=== PATIENT | male | born 1975 | race Caucasian/White ===

== ENCOUNTER 2016-04-25 08:46 | Emergency (ER) | payer OTHER ==
--- NOTE | 2016-04-25 09:03 | CPEKG ---
Heart Rate: 96 RR Interval: 625 P-R Interval: 156 QRSD Interval: 92 QT Interval: 348 QTC Interval: 440 P [place]: 41 QRS [place]: 67 T Wave [place]: 13 EKG Severity - NORMAL ECG - EKG Impression: SINUS RHYTHM Electronically Signed By: Tam Patterson 25-Apr-2016 15:00:51
[2016-04-25] MEDS ORDERED: NS 1,000 ML IV ONE (09:08)
--- NOTE | 2016-04-25 09:12 | EDPHY ---
H & P Stated Complaint: CP since yest. Time Seen by Provider: 04/25/16 09:03 - Personal History Current Tetanus/Diphtheria Vaccine: Yes Current Tetanus Diphtheria and Acellular Pertussis (TDAP): Yes Tetanus Vaccine Date: 2012 - Medical/Surgical History Hx Asthma: Yes Hx Chronic Respiratory Disease: No Hx Diabetes: No Hx Cardiac Disease: No Hx Renal Disease: No Hx Cirrhosis: No Hx Alcoholism: No Hx HIV/AIDS: No Hx Splenectomy or Spleen Trauma: No Other PMH: pneumothorax, asthma, left ACL repair, left foot surgery - Social History Smoking Status: Current some day smoker Constitutional: Initial Vital Signs Temperature (C) 36.5 C 04/25/16 08:49 Heart Rate 110 H 04/25/16 08:49 Respiratory Rate 16 04/25/16 08:49 Blood Pressure 174/120 H 04/25/16 08:49 O2 Sat (%) 95 04/25/16 08:49 O2 Delivery Mode Nasal Cannula O2 (L/minute) 2 Allergies/Adverse Reactions: No Known Allergies Allergy (Unverified 10/11/14 14:05) Home Medications: Medication Instructions Recorded Docusate Sodium [Colace 100 MG (*)] 100 mg PO BID #20 cap 10/13/14 Lisinopril [Zestril 10 mg (*)] 10 mg PO DAILY #30 tab 10/13/14 oxyCODONE IR [Oxycodone Ir (*)] 5 - 10 mg PO Q3 PRN #20 tab 10/13/14 HYDROcodone/APAP 10/325 [[place] 1 - 2 each PO Q4-6PRN PRN #20 tab 04/25/16 10/325] Lisinopril 10 mg PO DAILY #0 tablet 04/25/16 Medical Decision Making ED Course/Re-evaluation: CHIEF COMPLAINT: Chest pain. 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 The pain went away after a few minutes. It has been intermittent since then. The pain does not radiate. It is not worsened with deep breathing. He denies dizziness, nausea, palpitations. He has also had right-sided tooth pain and left ear pain for 4 or 5 months. He has taken Ibuprofen for the pain which has helped a small amount. REVIEW OF SYSTEMS: A 10 point review of systems was performed and is negative with the exception of the elements mentioned in the history of present illness. PHYSICAL EXAM: HR, BP, O2 Sat, RR. Temp noted General Appearance: Alert, well hydrated, appropriate, and non-toxic appearing. Head: Atraumatic without scalp tenderness or obvious injury Eyes: Pupils equal, round, reactive to light and accommodation, EOMI, no trauma , no injection. Ears: Clear bilaterally, no perforation, normal landmarks Nose: Atraumatic, no rhinorrhea, clear. Throat: There is no erythema or exudates, no lesions, normal tonsils, mucus membranes moist. Neck: Supple, 2+ carotid upstroke, nontender, no lymphadenopathy. Respiratory: No retractions, no distress, no wheezes, and no accessory muscle use. Lungs are clear to auscultation bilaterally. Cardiovascular: Diminished heart sounds. Regular rate and rhythm, no murmurs, rubs, or gallops. Bilateral carotid, radial, dorsalis pedis, and posterior tibial pulses intact. Good capillary refill all extremities. Gastrointestinal: Abdomen is soft, nontender, non-distended, no masses, no rebound, no guarding, no peritoneal signs. Musculoskeletal: Normal active ROM of all extremities, atraumatic. Neurological: Alert, appropriate, and interactive. The patient has normal DTRs and non-focal cranial nerves, motor, sensory, and cerebellar exam. Skin: No rashes, good turgor, no nodules on palpation. Past medical history:Pneumothorax, asthma. Past surgical history:ACL repair. Family history:Both parents had hypertension. Social history:Works in a warehouse, smokes 3 cigarettes per week, social alcohol use. DIAGNOSTICS/PROCEDURES/CRITICAL CARE TIME: Study: PA and Lateral Chest X-ray Indication: Chest pain Results: I viewed the images myself on the PACS system. The radiologist interpretation is: no acute process. Study: CT of the chest. Indication: Pain. Results: No acute process. The study was read by the radiologist. I viewed the images myself on the PACS system. DIFFERENTIAL DIAGNOSIS: The differential diagnosis for the patient's chest pain included but was not limited to pneumothorax, myocardial ischemia, pulmonary embolus, chest wall pain , pleural inflammation, and pulmonary infectious causes. MEDICAL DECISION MAKIN-year-old male presents with dull intermittent mild chest pain since yesterday. He has a history of spontaneous pneumothorax a year ago that began in a similar fashion, when he was lifting items in a warehouse. His last pneumothorax involved a hospital stay of 3 days. Today the chest pain does not radiate and has no associated symptoms. His blood pressure is high in the ER today (198/128), however it was high last time as well. He had close follow up after that visit that revealed no problems, so I am not overly concerned with this today. An IV was established and labs ordered. Chest x-ray, EKG ordered. He is tachycardic at 110. 0946: I spoke with Dr. Vallejo, radiology. He reports the x-ray as negative, specifically no pneumothorax or pneumomediastinum. I discussed this with the patient at this time. He tells me he is still having mild chest pain. The pain is not reproducible on palpation. He believes his last pneumothorax was diagnosed with x-ray. We will await the rest of his lab work to see if CT is indicated. Troponin is negative, d-dimer, BNP negative. I reviewed the patient's past medical notes. He had a chest CT 09/2014 to diagnose his pneumothorax. He has good kidney function today. Chest CT ordered. 1110: Reassessed patient. He is ready to go home. I answered his questions. He was given return precautions prior to leaving. - Data Points Laboratory Results: Laboratory Results 04/25/16 09:00 04/25/16 09:00 04/25/16 09:00 WBC 7.90 10^3/uL (3.80-9.50) RBC 5.15 10^6/uL (4.40-6.38) Hgb 15.4 g/dL (13.7-17.5) Hct 43.5 % (40.0-51.0) MCV 84.5 fL (81.5-99.8) MCH 29.9 pg (27.9-34.1) MCHC 35.4 g/dL (32.4-36.7) RDW 11.9 % (11.5-15.2) Plt Count 269 10^3/uL (150-400) MPV 9.8 fL (8.7-11.7) Neut % (Auto) 67.8 % (39.3-74.2) Lymph % (Auto) 21.0 % (15.0-45.0) [place] % (Auto) 7.2 % (4.5-13.0) Eos % (Auto) 2.3 % (0.6-7.6) Baso % (Auto) 1.1 % (0.3-1.7) Nucleat RBC Rel Count 0.0 % (0.0-0.2) Absolute Neuts (auto) 5.35 10^3/uL (1.70-6.50) Absolute Lymphs (auto) 1.66 10^3/uL (1.00-3.00) Absolute Monos (auto) 0.57 10^3/uL (0.30-0.80) Absolute Eos (auto) 0.18 10^3/uL (0.03-0.40) Absolute Basos (auto) 0.09 10^3/uL (0.02-0.10) Absolute Nucleated RBC 0.00 10^3/uL (0-0.01) Immature Gran % 0.6 % (0.0-1.1) Immature Gran # 0.05 10^3/uL (0.00-0.10) PT 12.5 SEC (12.0-15.0) INR 0.94 (0.83-1.16) APTT 21.5 L SEC (23.0-38.0) D-Dimer < 0.27 ug/mLFEU (0.00-0.50) Sodium 141 mEq/L (134-144) Potassium 4.1 mEq/L (3.5-5.2) Chloride 105 mEq/L (97-110) Carbon Dioxide 22 mEq/l (22-31) Anion Gap 14 mEq/L (8-16) BUN 11 mg/dL (7-23) Creatinine 0.8 mg/dL (0.7-1.3) Estimated GFR > 60 Glucose 110 H mg/dL (70-100) Calcium 9.9 mg/dL (8.5-10.4) Troponin I < 0.012 ng/mL (0-0.034) NT-Pro-B Natriuret Pep 39 pg/mL (0-125) Medications Given: Discontinued Medications Aspirin (Aspirin) 324 mg PO EDNOW ONE Stop: 04/25/16 09:32 Last Admin: 04/25/16 09:46 Dose: 324 mg Sodium Chloride (Ns) 1,000 mls @ 0 mls/hr IV ONCE ONE PRN Reason: Wide Open Stop: 04/25/16 09:09 Last Admin: 04/25/16 09:11 Dose: 1,000 mls Departure - Departure Disposition: Home, Routine, Self-Care Clinical Impression: Atypical chest pain Condition: Good Instructions: Chest Pain (ED) Additional Instructions: Call Dr. Coronado, cardiology, today to set up a follow up appointment for reevaluation and for evaluation of your high blood pressure. Return to the emergency department for any serious worsening of condition. Referrals: Harrison Blair MD [Primary Care Provider] - As per Instructions Tatyana Coronado MD [Medical Doctor] - As per Instructions Prescriptions: Lisinopril 10 mg PO DAILY #0 tablet HYDROcodone/APAP 10/325 [[place] 10/325] 1 - 2 each PO Q4-6PRN PRN #20 tab PRN Reason: Pain, Moderate Report Scribed for: Tam Patterson Report Scribed by: Victorino Medrano Date of Report: 04/25/16 Time of Report: 09:27
[2016-04-25 09:29] LABS: % IMMATURE GRANULYOCYTES 0.6 % (0.0-1.1); ABSOLUTE IMMATURE GRANULOCYTES 0.05 10^3/uL (0.00-0.10); ADD DIFF? NO; ADD MORPH? NO; ADD SCAN? NO; ATYPICAL LYMPHOCYTE FLAG 0 (0-99); FRAGMENT RBC FLAG 0 (0-99); HEMATOCRIT 43.5 % (40.0-51.0); HEMOGLOBIN 15.4 g/dL (13.7-17.5); LEFT SHIFT FLG 0 (0-99); LIPEMIA HEMOLYSIS FLAG 90 (0-99); MEAN CELL HEMOGLOBIN 29.9 pg (27.9-34.1); MEAN CELL HEMOGLOBIN CONCENTR. 35.4 g/dL (32.4-36.7); MEAN CELL VOLUME 84.5 fL (81.5-99.8); MEAN PLATELET VOLUME 9.8 fL (8.7-11.7); PLATELET CLUMPS FLAG 0 (0-99); PLATELET COUNT 269 10^3/uL (150-400); RED BLOOD CELL COUNT 5.15 10^6/uL (4.40-6.38); RED CELL DISTRIBUTION WIDTH 11.9 % (11.5-15.2)
[2016-04-25] MEDS ORDERED: ASPIRIN 81 MG CHEWABLE TAB PO ONE (09:31)
[2016-04-25 09:42] LABS: INR 0.94 (0.83-1.16); PROTIME(PATIENT) 12.5 SEC (12.0-15.0)
[2016-04-25 09:43] LABS: ANION GAP 14 mEq/L (8-16); APTT 21.5 SEC (23.0-38.0); CALCIUM 9.9 mg/dL (8.5-10.4); CARBON DIOXIDE 22 mEq/l (22-31); CHLORIDE 105 mEq/L (97-110); CREATININE 0.8 mg/dL (0.7-1.3); GLOMERULAR FILTRATION RATE > 60; GLUCOSE 110 mg/dL (70-100); POTASSIUM 4.1 mEq/L (3.5-5.2); SODIUM 141 mEq/L (134-144)
--- NOTE | 2016-04-25 09:51 | DX ---
PA and Lateral Chest X-ray 907 hours History: Chest pain. Previous history of pneumothorax. Findings: Comparison to February 03, 2015. Heart size and pulmonary vasculature are normal. The lungs are clear without infiltrates or effusions. There is no pneumothorax. The osseous structures are inta ct. Impression: Normal chest x-ray.
[2016-04-25 09:55] LABS: TROPONIN I < 0.012 ng/mL (0-0.034)
[2016-04-25] MEDS ORDERED: IOPAMIDOL (ISOVUE 370) 100 ML BTL IV ONE (10:03)
--- NOTE | 2016-04-25 11:07 | CT ---
CT Pulmonary Angiogram at 1035 hours Clinical Indications: Dyspnea. Left-sided chest pain. Technique:: Thinly collimated multidetector helical CT imaging was performed through the chest while 90 mL Isovue-370 were injected intravenously without complication. The images were then transferred to an independent workstation where multiplanar and three-dimensional reconstructions were performed by the interpreting physician and reviewed at multiple windows. Dose reduction techniques were util ized. Findings: Pulmonary angiogram: Pulmonary arteries are well-opacified and demonstrate no evidence of filling def ect to indicate pulmonary embolus. Thoracic aorta is normal in size without evidence for aneurysm or dissection. Chest: Heart size is within normal limits. No evidence for mediastinal or hilar lymphadenopathy. No e vidence for pericardial effusion. The lungs are clear. No evidence for pleural effusion or pneumothor ax. Minimal degenerative changes seen in the thoracic spine. Visualized upper abdomen is unremarkable . Impression: No evidence for pulmonary embolus. Results called to Dr. Tam Patterson.
[2016-04-25 11:28] VITALS: BP 170/113; PULSE 81; RESP 16; TEMP 98.2; O2SAT 95
== END 2016-04-25 11:26 | disposition home or self-care (01) ==
DX: S29.9XXA Unspecified injury of thorax, initial encounter (principal); J45.909 Unspecified asthma, uncomplicated; F17.200 Nicotine dependence, unspecified, uncomplicated; X58.XXXA Exposure to other specified factors, initial encounter; Y99.8 Other external cause status; Y93.89 Activity, other specified
CPT/HCPCS: Q9967

== ENCOUNTER 2018-01-29 10:11 | Emergency (ER) | payer OTHER ==
--- NOTE | 2018-01-29 10:45 | EDPHY ---
H & P Stated Complaint: months of cp /got worse today Time Seen by Provider: 01/29/18 10:20 HPI/ROS: CHIEF COMPLAINT: Chest pain HISTORY OF PRESENT ILLNESS: 42-year-old male presents with chest pain. 3-4 month history of intermittent left-sided chest pain. Chest pain occurs suddenly and is usually dull, sometimes sharp and stabbing. The pain lasts 15- 20 seconds and then completely resolves. Recently the pain has worsened and has become more frequent. Associated with night sweats x2 nights and a mild cough for 2 weeks. No shortness of breath. Cardiac risk factors negative. No HTN, DM, hyperlipidemia, FH. Non smoker REVIEW OF SYSTEMS: complete 10 point ROS reviewed and is negative except for the noted elements in the HPI - Personal History Current Tetanus Diphtheria and Acellular Pertussis (TDAP): Yes Tetanus Vaccine Date: 2012 - Medical/Surgical History Hx Asthma: Yes Hx Chronic Respiratory Disease: No Hx Diabetes: No Hx Cardiac Disease: No Hx Renal Disease: No Hx Cirrhosis: No Hx Alcoholism: No Hx HIV/AIDS: No Hx Splenectomy or Spleen Trauma: No Other PMH: pneumothorax, asthma, left ACL repair, left foot surgery - Social History Smoking Status: Current some day smoker Alcohol Use: Sober Drug Use: None - Physical Exam Exam: General Appearance: Alert, pleasant Eyes: Pupils equal and round, no conjunctival pallor or injection ENT, Mouth: Mucous membranes moist Neck: Normal inspection Respiratory: no chest wall tenderness, Lungs are clear to auscultation Cardiovascular: Regular rate and rhythm, no murmur Gastrointestinal: Abdomen is soft and nontender Neurological: A&O, nonfocal, normal gait Skin: Warm and dry, no rash Extremities: Nontender, no pedal edema Psychiatric: Mood and affect normal Constitutional: Initial Vital Signs Temperature (C) 36.6 C 01/29/18 10:14 Heart Rate 91 01/29/18 10:14 Respiratory Rate 18 01/29/18 10:14 Blood Pressure 169/117 H 01/29/18 10:14 O2 Sat (%) 97 01/29/18 10:14 O2 Delivery Mode Room Air Allergies/Adverse Reactions: No Known Allergies Allergy (Verified 01/29/18 10:13) Home Medications: Medication Instructions Recorded Aspirin 325 mg (*) 01/29/18 Irbesartan 01/29/18 Medical Decision Making - Diagnostics EKG Interpretation: EKG interpreted by me reveals normal sinus rhythm, rate 81, no ST or T segment changes. Interpretation: Normal EKG Imaging Results: Chest X-Ray 01/29/18 10:31 Impression: No acute abnormality. Imaging: I viewed and interpreted images myself ED Course/Re-evaluation: This patient presents with atypical chest pain. Stat EKG reveals no evidence of ischemia or dysrhythmia. Chest x-ray is negative. Old medical record reviewed. CT pulmonary angiogram in March 2016 for similar symptoms was unremarkable. After careful consideration and evaluation, I find no evidence of acute coronary syndrome. The patient has no risk factors for coronary disease, normal EKG and normal studies. Heart score is 0. I do not feel that additional ED testing is indicated. In addition, I feel that I can safely exclude pulmonary embolism, with normal vital signs, normal oxygen saturation and normal studies. PERC score negative; age less than 50, normal physical exam , no prior thromboembolism, no recent surgery, no estrogen use. In addition there is no evidence of pneumothorax, pneumonia, aortic dissection. Likely musculoskeletal etiology of cp. Warning signs d/w pt, encouraged f/u PCP. Differential Diagnosis: Differential diagnosis includes though it is not limited to pneumonia, pneumothorax, pulmonary embolism, aortic dissection, pericarditis, acute coronary syndrome. - Data Points Laboratory Results: Laboratory Results 01/29/18 10:28 01/29/18 10:28 Point of Care Test Results: Chemistry 01/29/18 10:27 POC Troponin I 0.00 ng/mL ng/mL (0.00-0.08) Departure - Departure Disposition: Home, Routine, Self-Care Clinical Impression: Chest pain Qualifiers: Chest pain type: intercostal pain Qualified Code(s): R07.82 - Intercostal pain Condition: Good Instructions: Chest Pain (ED) Additional Instructions: Your EKG and chest Xray are normal today. Referrals: Harrison Blair MD [Primary Care Provider] - 5-7 days, call for appt.
[2018-01-29 10:51] LABS: PLATELET COUNT 255 10^3/uL (150-400)
[2018-01-29 11:42] VITALS: BP 150/107
--- NOTE | 2018-01-29 12:46 | CPEKG ---
Test Reason : OPEN Blood Pressure : / mmHG Vent. Rate : 081 BPM Atrial Rate : 081 BPM P-R Int : 153 ms QRS Dur : 096 ms QT Int : 376 ms P-R-T Axes : 018 048 016 degrees QTc Int : 437 ms Sinus rhythm Confirmed by Caryn Oscar ([id number]) on 01/29/2018 12:46:08 PM Referred By: Confirmed By:Caryn Oscar
== END 2018-01-29 11:36 | disposition home or self-care (01) ==
DX: R07.82 Intercostal pain (principal); I10 Essential (primary) hypertension; E11.9 Type 2 diabetes mellitus without complications; F17.200 Nicotine dependence, unspecified, uncomplicated
CPT/HCPCS: 84484-PO